=== PATIENT | male | born 1960 | race Caucasian/White ===

== ENCOUNTER 2017-02-26 10:17 | Inpatient (IN) | payer OTHER ==
[~2017-02-26] VITALS: Ht 175.3 cm; Wt 70.5 kg
[2017-02-26] VITALS (23 sets, daily range): BP systolic 97–141; BP diastolic 55–87; PULSE 56–85; RESP 13–39; Ht 175.3 cm; Wt 70.5 kg
[~2017-02-26 10:17] MED LIST: HETASTARCH 6% NACL 500 ML BAG ONE
[2017-02-26] MEDS ORDERED: GELATIN SIZE 100 SPONGE ONE (14:33)
[2017-02-26] MEDS ORDERED: THROMBIN 5000 UNIT VIAL ONE ×2 (14:33→16:42)
[2017-02-26] MEDS ORDERED: SURGIFOAM POWDER 1 GM KIT ONE (14:33)
[2017-02-26] MEDS ORDERED: CA CHLORIDE 10% 10 ML SYRINGE ONE (14:33)
[2017-02-26] MEDS ORDERED: BUPIVACAINE 0.5%/EPI (SDV) 30 ML INJ ONE (14:33)
[2017-02-26] MEDS ORDERED: POLYMYXIN/BACITRACIN 1L IRRIG ONE (14:33)
[2017-02-26] MEDS ORDERED: CEFAZOLIN 1 GM INJ ONE ×2 (14:33→15:38)
--- NOTE | 2017-02-26 15:15 | HPN ---
Date/Time of Note Date/Time of Note DATE: 02/26/17 TIME: 15:15 Interval H&P Admission Note Pt. seen H&P reviewed: No system changes MELI MURILLO MD Feb 26, 2017 15:15
[2017-02-26] MEDS ORDERED: DIPHENHYDRAMINE 50 MG INJ IV PRN ×2 (15:30→17:00)
[2017-02-26] MEDS ORDERED: NALOXONE (0.4 MG/ML) INJ IV PRN (15:30)
[2017-02-26] MEDS ORDERED: DIPHENHYDRAMINE 25 MG CAP PO PRN (15:30)
[2017-02-26] MEDS ORDERED: CEPASTAT LOZENGE MT PRN (15:30)
[2017-02-26] MEDS ORDERED: BISACODYL 10 MG SUPP PR PRN (15:30)
[2017-02-26] MEDS ORDERED: ACETAMINOPHEN 325 MG TAB PO PRN (15:30)
[2017-02-26] MEDS ORDERED: CYCLOBENZAPRINE 10 MG TAB PO PRN (15:30)
[2017-02-26] MEDS ORDERED: AL HYDROX/MG HYDROX/SIMETH 30 ML CUP PO PRN (15:30)
[2017-02-26] MEDS ORDERED: HYDROmorphONE 0.2 MG/ML PCA IV SCH (15:30)
[2017-02-26] MEDS ORDERED: ZOLPIDEM 5 MG TAB PO PRN (15:30)
[2017-02-26] MEDS ORDERED: ONDANSETRON 4 MG INJ IV PRN ×2 (15:30→17:00)
[2017-02-26] MEDS ORDERED: HYDROmorphONE 0.5 MG/0.5 ML SYG IV PRN (15:30)
[2017-02-26] MEDS ORDERED: MIDAZOLAM 1 MG/ML 2 ML INJ ONE (15:38)
[2017-02-26] MEDS ORDERED: PROPOFOL 100 ML ONE ×2 (15:38→18:28)
[2017-02-26] MEDS ORDERED: ROCURONIUM 50 MG INJ ONE ×3 (15:38→17:16)
[2017-02-26] MEDS ORDERED: HEPARIN 1000 UNITS/ML 10 ML INJ ONE (15:44)
[2017-02-26] MEDS: CEFAZOLIN 1 GM/50 ML (PMX) 50 ML IVPB SCH ×2 (16:00→23:42)
--- NOTE | 2017-02-26 16:38 | RADRPT ---
PROCEDURE: XR lumbar spine CLINICAL INDICATION: Lumbar decompression L3-S1 TECHNIQUE: Cross-table lateral lumbar spine radiograph obtained COMPARISON: None available FINDINGS: Jackson present posteriorly at the L3, S1 levels. Preservation of the lumbar lordosis. Anterior oste ophytes seen at L2-3 and L3-4. Mild to moderate disc space narrowing at L2-3 and L5-S1, mild disc sp sindhu narrowing at L4-5. IMPRESSION: Posterior needle localization at L3, and S1. Lumbar spondylosis/degenerative enthesopathy as described above. RPTAT: VV .Gustavo Pandya MD, MD Date Time Electronically viewed and signed by .Gustavo Pandya MD, on 02/26/2017 16:38 .O/
--- NOTE | 2017-02-26 16:44 | RADRPT ---
PROCEDURE: Lumbar spine x-ray CLINICAL INDICATION: Lumbar spine surgery TECHNIQUE: Single intraoperative lateral x-ray view of the lumbar spine is available for review COMPARISON: None available FINDINGS: Surgical changes of the lumbar spine are identified. Intraoperative imaging was performed for local ization during the procedure in progress. Posterior probes are seen at the L4, L5, and S1 levels. Im ages obtained intraoperatively for localization during the procedure. Discogenic disease and disc sp sindhu narrowing throughout most of the mid and lower lumbar spine is seen. Posterior element facet art hropathy is seen as well. The surrounding soft tissues unremarkable. The bowel gas pattern is unrema rkable as well. IMPRESSION: 1. Intraoperative x-ray for localization during lumbar spinal surgical procedure. RPTAT: HMJB .Shade Corona MD, Date Time Electronically viewed and signed by .Shade Corona MD, on 02/26/2017 16:44 .B/
[2017-02-26] MEDS ORDERED: ACETAMINOPHEN 1000MG/100ML IV 100 ML ONE (16:52)
[2017-02-26] MEDS ORDERED: ONDANSETRON 4 MG INJ ONE (16:53)
[2017-02-26] MEDS ORDERED: DEXAMETHASONE 4 MG/ML 1 ML INJ ONE (16:53)
[2017-02-26] MEDS ORDERED: METOCLOPRAMIDE 10 MG INJ ONE (16:53)
[2017-02-26] MEDS ORDERED: METOCLOPRAMIDE 10 MG INJ IV PRN (17:00)
[2017-02-26] MEDS ORDERED: HYDROmorphONE (0.2 MG/ML) 10ML SYG IV PRN ×3 (17:00)
[2017-02-26] MEDS ORDERED: MEPERIDINE 25 MG INJ IV PRN (17:00)
[2017-02-26] MEDS ORDERED: hydrALAzine 20 MG INJ IV PRN (17:00)
[2017-02-26] MEDS ORDERED: LABETALOL HCL 20MG INJ IV PRN (17:00)
[2017-02-26] MEDS ORDERED: FENTAnyl 50 MCG/ML VIAL IV PRN ×3 (17:00)
[2017-02-26] MEDS ORDERED: morphine (1 MG/ML) 10ML SYRINGE IV PRN ×3 (17:00)
[2017-02-26] MEDS ORDERED: EPHEDrine SULFATE 50 MG/5 ML SYG IV PRN (17:00)
[2017-02-26] MEDS ORDERED: FENTAnyl 50 MCG/ML VIAL ONE (17:41)
[2017-02-26] MEDS ORDERED: BUPIVACAINE 0.25% (MPF) 30 ML INJ ONE (17:41)
[2017-02-26] MEDS ORDERED: HYDROCODONE/APAP (10/325) TAB PO PRN (18:00)
[2017-02-26] MEDS ORDERED: SUGAMMADEX SODIUM 200 MG/2 ML VIAL IV ONE (18:29)
--- NOTE | 2017-02-26 18:45 | SIPON ---
Date/Time of Note Date/Time of Note DATE: 02/26/17 TIME: 18:42 Operative Report Preoperative Diagnosis Lumbar stenosis Postoperative Diagnosis Lumbar stenosis Operation/Procedure Performed Lumbar decompression Surgeon see signature line assistant chief train dispatcher Aparna King Anesthesia: general Estimated blood loss: other Transfusion Required none Specimen Disc and spinous process Grafts/Implants none Complications none MELI MURILLO MD Feb 26, 2017 18:45
[2017-02-26] MEDS: D5W-0.45 NACL + KCL 20 MEQ 1,000 ML IV SCH (20:30)
--- NOTE | 2017-02-26 20:31 | OPR ---
DATE OF OPERATION: 02/26/2017 PREOPERATIVE DIAGNOSES: L3 lumbar stenosis with radiculopathy. POSTOPERATIVE DIAGNOSIS: L3 lumbar stenosis with radiculopathy. OPERATION PERFORMED: 1. L3-4, L4-5, and L5-S1 central decompression with decompression of L3, L4, L5 and S1 nerve roots. 2. Right L4-L5 lumbar microdiskectomy. 3. Lateral localizing film x2. 4. Intraoperative neuromonitoring (2.32 hours 15 minutes). 5. Use of operative microscope. PRIMARY SURGEON: Adlo Hernandez MD ENTREPRENEURIAL FINANCE PROFESSOR: Aparna King PA-C. NEED FOR CAD OPERATOR: During this spinal surgical procedure, my assistant hvac mechanic was used to retract and protect the spinal nerves and dural sac. My assistant hvac mechanic also employed the suction catheters to evacuate blood from the surgical field to improve visualization of the neural structures. The assistant hvac mechanic was medically necessary to facilitate the completion of the surgery in a safe and expeditious manner. [facility] regulations, as well as hospital bylaws, preclude the use of non-licensed health care personnel, such as operating room technicians, to perform these functions. FINDINGS: Neuromonitoring at the start of the case revealed right L3 amplitude down 30%, bilateral L4 and L5 amplitude down 40%, left S1 amplitude down 50%. The patient had stenosis at L3-4, L4-5, and L5-S1. Patient had facet diastasis at L4-L5 with a right-sided herniation. ESTIMATED BLOOD LOSS: 300 mL with blood return via Cell Saver. DRAINS: One. SPECIMENS: L4-5 disk as well spinous processes of L3, L4, L5. COMPLICATIONS OF PROCEDURES: None. ANESTHESIOLOGIST: MD Anamika TYPE OF ANESTHESIA: General. INDICATIONS FOR PROCEDURE: This is a 56-year-old gentleman with lumbosacral radiculopathy in the setting of stenosis. He has failed nonoperative measures, therefore, I recommended proceeding with the above-mentioned surgery. Preoperatively, we discussed the risks, benefits, and alternatives. He understood and wished to proceed. DESCRIPTION OF PROCEDURE IN DETAIL: The patient was identified in the preoperative holding area, given Ancef antibiotic, taken to the operating room, where he was successfully placed under general anesthesia. Neuromonitoring leads were placed, sequential compressive devices were applied. Beckett catheter was introduced. Neuromonitoring was utilized during the procedure for 2 hours and 15 minutes to include SSEP, MEP, and EMG. This was performed by Group 47. Start time was 4:20 p.m., closure time was 6:35 p.m. The patient was placed on operative chair and into a prone position over a Umesh frame. All bony prominences were well padded. The back was then prepped and draped in usual sterile fashion. Spinal needles were placed and lateral localizing films obtained to confirm the correct levels. Once this was confirmed, I injected the skin and subcutaneous tissue with 0.5% Marcaine and epinephrine. Incision was then made from L3 to the sacrum. Incision was taken down to the dorsal fascia, which was incised with Bovie cautery. I then subperiosteally dissected the L3, L4, L5, and S1 lamina bilaterally. I then placed Kochers around the spinous processes and took a repeat lateral film to confirm the correct level. Next, I performed a central decompressive laminectomy at L3-4, L4-5 and L5-S1, leaving the superior aspect of L3 intact. I removed the ligamentum flavum and decompressed the canal centrally. I decompressed the lateral recess. I decompressed the L3, L4, L5 and S1 nerve roots bilaterally. At this point, all nerve signals returned to normal. However, the patient had extruded herniation seen on the MRI and therefore microscope was brought in and I performed a right- sided microdiskectomy. My assistant hvac mechanic retracted neural elements medially. Annulotomy was performed followed by a diskectomy with removal of the extraforaminal disk herniations as well. This diskectomy was done in order to alleviate the stenosis and beyond what was required in order to perform a standard decompression. Once this was done, I irrigated the wound. Hemostasis was achieved with Gelfoam, thrombin, bipolar cautery, and Surgifoam. I put bone wax on the bony edges and irrigated the wound one more time. A Valsalva maneuver was performed and there was no leak of CSF. Epidural catheter was passed through which I injected 100 mcg of fentanyl with 2 mL of Marcaine 0.25% preservative-free, and the catheter was pulled. I injected PTT and thrombin over the dura for hemostatic purposes as well as PRP into the disk space. I placed a deep subfascial drain and closed the deep fascia with #1 Stratafix suture. I then closed subcutaneous tissue with 2-0 Vicryl stitch. Microscope was taken off the field. A 4-0 Monocryl closure was then performed. Dermabond and sterile dressings were then applied. The patient was then awakened from anesthesia and taken to recovery in stable condition. Lap, sponge, and instrument counts were correct x2. There were no apparent complications during the procedure. The patient will be admitted to the orthopedic bay for routine postoperative care to include pain control, neurovascular checks, antibiotics, and physical therapy. Dictated By: ALDO HERNANDEZ MD BB/CORAZON Conf#: [id number] DID#: [id number] CC: MARY VASQUEZ MD;*EndCC* MTDD
[2017-02-26] MEDS: DOCUSATE SODIUM 100 MG CAP PO SCH (21:00)
[2017-02-27] MEDS: D5W-0.45 NACL + KCL 20 MEQ 1,000 ML IV SCH ×3 (01:16→18:06)
[2017-02-27 04:00] VITALS: BP 110/72; RESP 18
[2017-02-27 05:41] LABS: ABNORMAL IP MESSAGE 1; BASOPHILS % 0.1 % (0.0-2.0); HEMOGLOBIN 13.8 g/dl (14.0-18.0); LYMPHOCYTES # 0.5 10^3/ul (0.8-2.9); MEAN CORPUSCULAR HEMOGLOBIN 32.5 pg (29.0-33.0); MEAN CORPUSCULAR HGB CONC 34.5 g/dl (32.0-37.0); MEAN CORPUSCULAR VOLUME 94.1 fl (82.0-101.0); MEAN PLATELET VOLUME 9.7 fl (7.4-10.4); MONOCYTE # 0.4 10^3/ul (0.3-0.9); MONOCYTES % 4.9 % (0.0-11.0); NEUTROPHIL # 7.5 10^3/ul (1.6-7.5); NEUTROPHILS % 88.6 % (39.0-77.0); PLATELET COUNT 194 10^3/UL (140-415); POSITIVE DIFF @See below; RED BLOOD COUNT 4.25 10^6/ul (4.70-6.10); WHITE BLOOD COUNT 8.4 10^3/ul (4.8-10.8)
[2017-02-27] MEDS ORDERED: PANTOPRAZOLE 40 MG INJ IV SCH (06:00)
[2017-02-27 06:13] LABS: CALCIUM 8.2 mg/dl (8.4-10.2); CREATININE 0.83 mg/dl (0.61-1.24); MAGNESIUM 1.8 mg/dl (1.7-2.5); POTASSIUM 4.3 mmol/L (3.5-5.1)
[2017-02-27] MEDS: CEFAZOLIN 1 GM/50 ML (PMX) 50 ML IVPB SCH (06:39)
[2017-02-27 07:21] VITALS: BP 104/66; RESP 19
[2017-02-27] MEDS: DOCUSATE SODIUM 100 MG CAP PO SCH ×2 (08:15→20:46)
--- NOTE | 2017-02-27 09:22 | CONS ---
DATE OF ADMISSION: 02/26/2017 DATE OF CONSULTATION: POSTOPERATIVE INTERNAL MEDICINE CONSULTATION The patient had surgery with Dr. Aldo Hernandez late 02/26/2017. REASON FOR CONSULTATION: Consultation requested by Dr. Aldo Hernandez for medical evaluation and f ollow up postoperatively of a 56-year-old gentleman who underwent lumbar spine surgery. Thank you, Dr. Hernandez, for allowing us to participate in care of this patient. HISTORY OF PRESENT ILLNESS: Cale Noyola, a 56-year-old generally healthy male with chronic issues w ith his back. Despite all his back issues has been an avid runner for many, many a year, was admitt ed for correction of some of the symptoms of spinal stenosis L3 through S1 and predominantly had a m ultilevel laminectomy done with some disk cleaning as well with microdiskectomy at L4, L5, etc. In terms of his past medical and general health history and past surgical history, he has had prior surgeries on the knees, elbows, etc. all related to his very active life. From a medical standpoint , had a recent hospitalization for extreme dehydration for which he had run and was not feeling well at the time, but other than that, has been generally healthy. MEDICATIONS: Takes no chronic medications. ALLERGIES: 1. GADOLINIUM. 2. CODEINE. SOCIAL HISTORY: The patient is , has 2 children and is employed. FAMILY HISTORY: Basically positive for cancer. No other major significant illnesses. REVIEW OF SYSTEMS: Other than his joints and his back and recently noted to have weakness in his le ft thigh secondary to radiculopathy, which eventually led to the surgery. PHYSICAL EXAMINATION: VITAL SIGNS: Blood pressure 104/66, pulse 71 and regular, respirations 19, temperature 98, O2 satur ation 97%. HEENT: No obvious abnormalities noted. NECK: Supple. LUNGS: Clear. HEART: Reveals a regular rhythm. ABDOMEN: Unremarkable. EXTREMITIES: Grossly appear normal. IMPRESSION: 1. Status post lumbar spine laminectomy and microdiskectomy. 2. Stable health. DISCUSSION: Current laboratory reveals a normal CBC, normal chemistries. As mentioned above, his v ital signs have been good and overall he feels well. In view of the fact patient got up to the floo r quite late last night, he has not gotten out of bed yet; however, will be starting to be active to day. Thank you again, Dr. Hernandez, for allowing me to participate in the care of this patient. I will be happy to follow him with you during his stay at [facility]. Dictated By: MARY VASQUEZ MD SS/NTS Conf#: [id number] DID#: [id number] CC: ALDO HERNANDEZ MD;*End*
--- NOTE | 2017-02-27 10:56 | PN ---
Date/Time of Note Date/Time of Note DATE: 02/27/17 TIME: 10:55 Assessment/Plan Lines/Catheters IV Catheter Type (from Nrsg): Peripheral IV Beckett in Place (from Nrsg): Yes Assessment/Plan Assessment/Plan s/p lumbar decompression continue PT, ambulate routine care pain control Subjective 24 Hr Interval Summary c/o LBP Exam/Review of Systems Vital Signs Vitals Vital Signs Date Time Temp Pulse Resp B/P Pulse Ox O2 Delivery O2 Flow Rate FiO2 02/27/17 07:21 98.0 71 19 104/66 97 02/26/17 23:44 Nasal Cannula 2.0 Intake and Output 02/26/17 02/26/17 02/27/17 14:59 22:59 06:59 Intake Total 1525 ml 1160 ml Output Total 520 ml 1620 ml Balance 1005 ml -460 ml Exam Free Text/Dictation NVID drain intact, output 190cc Results Result Diagram: 02/27/17 0458 02/27/17 0458 RANGEL MARCUS PA-C Feb 27, 2017 10:56
[2017-02-27 15:43] VITALS: BP 121/71; RESP 19
[2017-02-27 19:55] VITALS: BP 124/74; RESP 20
[2017-02-28 02:44] VITALS: BP 128/72; RESP 20
[2017-02-28 05:16] LABS: BASOPHILS % 0.5 % (0.0-2.0); EOSINOPHILS % 0.4 % (0.0-7.0); HEMATOCRIT 39.5 % (42.0-52.0); HEMOGLOBIN 13.5 g/dl (14.0-18.0); LYMPHOCYTES # 1.8 10^3/ul (0.8-2.9); MEAN CORPUSCULAR HEMOGLOBIN 32.5 pg (29.0-33.0); MEAN CORPUSCULAR HGB CONC 34.2 g/dl (32.0-37.0); MEAN PLATELET VOLUME 9.5 fl (7.4-10.4); MONOCYTE # 0.8 10^3/ul (0.3-0.9); MONOCYTES % 9.8 % (0.0-11.0); NEUTROPHIL # 5.7 10^3/ul (1.6-7.5); NEUTROPHILS % 68.1 % (39.0-77.0); PLATELET COUNT 170 10^3/UL (140-415); RED BLOOD COUNT 4.16 10^6/ul (4.70-6.10); RED CELL DISTRIBUTION WIDTH 12.4 % (11.5-14.5); WHITE BLOOD COUNT 8.4 10^3/ul (4.8-10.8)
[2017-02-28 05:44] LABS: CALCIUM 8.5 mg/dl (8.4-10.2); CREATININE 0.91 mg/dl (0.61-1.24); MAGNESIUM 1.9 mg/dl (1.7-2.5); POTASSIUM 4.1 mmol/L (3.5-5.1)
[2017-02-28] MEDS: PANTOPRAZOLE (EC) 40 MG TAB PO SCH (06:21)
[2017-02-28] MEDS: D5W-0.45 NACL + KCL 20 MEQ 1,000 ML IV SCH ×2 (06:23→16:54)
--- NOTE | 2017-02-28 07:49 | PN ---
Date/Time of Note Date/Time of Note DATE: 02/28/17 TIME: 07:48 Assessment/Plan Lines/Catheters IV Catheter Type (from Nrsg): Peripheral IV Beckett in Place (from Nrsg): Yes Assessment/Plan Assessment/Plan Postoperative day 2 status post lumbar decompression. Patient is doing fairly well. We will discontinue ORGAN TUNER [employer]RON[employer] and Beckett today. Anticipate discharge tomorrow after Hemovac is removed Subjective 24 Hr Interval Summary Complains of sore back after sitting for prolonged period of time yesterday on his laptop Exam/Review of Systems Vital Signs Vitals Vital Signs Date Time Temp Pulse Resp B/P Pulse Ox O2 Delivery O2 Flow Rate FiO2 02/28/17 02:44 98.6 72 20 128/72 96 02/26/17 23:44 Nasal Cannula 2.0 Intake and Output 02/27/17 02/27/17 02/28/17 15:00 23:00 07:00 Intake Total 50 ml 2200 ml 1800 ml Output Total 50 ml 1420 ml 2565 ml Balance 0 ml 780 ml -765 ml Exam Free Text/Dictation Neurovascularly intact Results Result Diagram: 02/28/17 0452 02/28/17 0452 MELI MURILLO MD Feb 28, 2017 07:49
[2017-02-28 08:03] VITALS: BP 109/70; RESP 20
--- NOTE | 2017-02-28 08:06 | CONS ---
Date/Time of Note Date/Time of Note DATE: 02/28/17 TIME: 07:58 Consult Date/Type/Reason Admit Date/Time Feb 26, 2017 at 12:56 Initial Consult Date 02/27/2017 Type of Consultation: internal medicine Reason for Consultation medical evaluation and f/u Ordering Provider: MELI MURILLO MD Subjective complaining of back pain may have overdone activity yesterday can't find a comfortable position,also has some abdominal bloating Objective Vital Signs Date Time Temp Pulse Resp B/P Pulse Ox O2 Delivery O2 Flow Rate FiO2 02/28/17 05:00 18 02/28/17 02:44 98.6 72 128/72 96 02/26/17 23:44 Nasal Cannula 2.0 Intake and Output 02/27/17 02/27/17 02/28/17 15:00 23:00 07:00 Intake Total 50 ml 2200 ml 1800 ml Output Total 50 ml 1420 ml 2565 ml Balance 0 ml 780 ml -765 ml Exam vss heent negative lungs clear heart regular rhythm abdomen soft slightly distended bowel sounds present Results/Medications Result Diagram: 02/28/17 0452 02/28/17 0452 Results 24 hrs Laboratory Tests Test 02/28/17 04:52 White Blood Count 8.4 Red Blood Count 4.16 L Hemoglobin 13.5 L Hematocrit 39.5 L Mean Corpuscular Volume 95.0 Mean Corpuscular Hemoglobin 32.5 Mean Corpuscular Hemoglobin Concent 34.2 Red Cell Distribution Width 12.4 Platelet Count 170 Mean Platelet Volume 9.5 Neutrophils % 68.1 Lymphocytes % 21.0 Monocytes % 9.8 Eosinophils % 0.4 Basophils % 0.5 Nucleated Red Blood Cells % 0.0 Neutrophils # 5.7 Lymphocytes # 1.8 Monocytes # 0.8 Eosinophils # 0.0 Basophils # 0.0 Nucleated Red Blood Cells # 0.0 Sodium Level 139 Potassium Level 4.1 Chloride Level 104 Carbon Dioxide Level 31 Anion Gap 8 Blood Urea Nitrogen 11 Creatinine 0.91 Glucose Level 101 # Calcium Level 8.5 Magnesium Level 1.9 Medications Current Medications Potassium Chloride/Dextrose/ Sod Cl (D5-1/2ns + KCl 20 Meq) 1,000 ml @ 100 mls/ hr Q10H IV Last administered on 02/28/17t 06:23; Admin Dose 100 MLS/HR; Start 02/26/17 at 15:16 Acetaminophen/ Hydrocodone Bitart ([place] (325)) 1 tab Q4H PRN PO PAIN LEVEL 1-5; Start 02/26/17 at 18:00 Acetaminophen/ Hydrocodone Bitart ([place] (325)) 2 tab Q4H PRN PO PAIN LEVEL 6-10; Start 02/26/17 at 18:00 Hydromorphone HCl (Dilaudid) 0.2 mg Q1H PRN IV BREAKTHROUGH PAIN; Start at 15:30 Zolpidem Tartrate (Ambien) 5 mg HS PRN PO INSOMNIA; Start 02/26/17 at 15:30 Ondansetron HCl (Zofran Inj) 4 mg Q6H PRN IV NAUSEA AND/OR VOMITING; Start at 15:30 Bisacodyl (Dulcolax Supp) 10 mg DAILY PRN [place] CONSTIPATION; Start 02/26/17 at 15:30 Docusate Sodium (Colace) 100 mg BID PO Last administered on 02/27/17t 20:46; Admin Dose 100 MG; Start 02/26/17 at 21:00 Al Hydrox/Mg Hydrox/Simethicone (Mag-Al Plus) 15 ml Q6H PRN PO CONSTIPATION/ DYSPEPSIA; Start 02/26/17 at 15:30 Acetaminophen (Tylenol Tab) 650 mg Q4H PRN PO WOO OR TEMP GREATER THAN 101.3F; Start 02/26/17 at 15:30 Cyclobenzaprine HCl (Flexeril) 10 mg TID PRN PO MUSCLE SPASMS; Start 02/26/17 at 15:30 Phenol (Cepastat Lozenge) 1 lozenge PRN PRN [place] SORE THROAT; Start 02/26/17 at 15:30 Diphenhydramine HCl (Benadryl) 25 mg Q6H PRN PO ITCHING; Start 02/26/17 at 15: 30 Diphenhydramine HCl (Benadryl) 25 mg Q6H PRN IV ITCHING; Start 02/26/17 at 15: 30 Naloxone HCl (Narcan) 0.2 mg Q2M PRN IV RR 8 BREATHS/MIN OR LESS; Start at 15:30 Miscellaneous Information 1. Hold MANAGER ADMINISTRATIVE SERVICES at 1,000... MANAGER ADMINISTRATIVE SERVICES IV ; Start 02/26/17 at 15 :30 Pantoprazole (Protonix Tab) 40 mg DAILY@06 PO Last administered on 02/28/17t 06:21; Admin Dose 40 MG; Start 02/28/17 at 06:00 Assessment/Plan Chief Complaint/Hosp Course back pain and could not find a comfortable position last night Problems: Additional Assessment/Plan will try to get some sleep today using command center officer today .maybe resume pt in pm MARY VASQUEZ MD Feb 28, 2017 08:06
[2017-02-28] MEDS: DOCUSATE SODIUM 100 MG CAP PO SCH ×2 (09:06→21:00)
[2017-02-28] MEDS: HYDROCODONE/APAP (10/325) TAB PO PRN (10:59)
[2017-02-28 13:39] VITALS: BP 108/64; RESP 20
[2017-02-28] MEDS ORDERED: KETOROLAC 30 MG INJ IV STA (17:00)
[2017-02-28 20:09] VITALS: BP 104/55; RESP 20
[2017-03-01] MEDS: D5W-0.45 NACL + KCL 20 MEQ 1,000 ML IV SCH ×2 (03:16→13:16)
[2017-03-01 05:14] LABS: BASOPHILS % 0.4 % (0.0-2.0); EOSINOPHILS # 0.1 10^3/ul (0.0-0.5); EOSINOPHILS % 0.8 % (0.0-7.0); HEMATOCRIT 40.5 % (42.0-52.0); HEMOGLOBIN 13.9 g/dl (14.0-18.0); LYMPHOCYTES # 1.6 10^3/ul (0.8-2.9); LYMPHOCYTES % 21.7 % (15.0-51.0); MEAN CORPUSCULAR HEMOGLOBIN 32.6 pg (29.0-33.0); MEAN CORPUSCULAR HGB CONC 34.3 g/dl (32.0-37.0); MEAN CORPUSCULAR VOLUME 95.1 fl (82.0-101.0); MEAN PLATELET VOLUME 9.6 fl (7.4-10.4); MONOCYTE # 0.7 10^3/ul (0.3-0.9); MONOCYTES % 10.2 % (0.0-11.0); NEUTROPHIL # 4.7 10^3/ul (1.6-7.5); NEUTROPHILS % 66.5 % (39.0-77.0); PLATELET COUNT 169 10^3/UL (140-415); RED BLOOD COUNT 4.26 10^6/ul (4.70-6.10); WHITE BLOOD COUNT 7.1 10^3/ul (4.8-10.8)
[2017-03-01 05:39] LABS: CALCIUM 8.6 mg/dl (8.4-10.2); CREATININE 0.91 mg/dl (0.61-1.24); POTASSIUM 3.9 mmol/L (3.5-5.1)
[2017-03-01 07:56] VITALS: BP 109/69; RESP 18
[2017-03-01] MEDS: PANTOPRAZOLE (EC) 40 MG TAB PO SCH (07:56)
[2017-03-01] MEDS: HYDROCODONE/APAP (10/325) TAB PO PRN (07:56)
--- NOTE | 2017-03-01 08:03 | CONS ---
Date/Time of Note Date/Time of Note DATE: 03/01/17 TIME: 07:57 Consult Date/Type/Reason Admit Date/Time Feb 26, 2017 at 12:56 Initial Consult Date 02/27/2017 Type of Consultation: internal medicine Reason for Consultation medical f/u Ordering Provider: MELI GUERRERO MD Subjective a little better today still has alot of back pain and feels uncomfortable Objective Vital Signs Date Time Temp Pulse Resp B/P Pulse Ox O2 Delivery O2 Flow Rate FiO2 02/28/17 20:09 98.0 60 20 104/55 95 02/26/17 23:44 Nasal Cannula 2.0 Intake and Output 02/28/17 02/28/17 03/01/17 14:59 22:59 06:59 Intake Total 100 ml 800 ml Output Total 1300 ml Balance 100 ml -500 ml Exam vss lungs clear heart regular rhythm abdomen soft slightly distended catheter still in Results/Medications Result Diagram: 03/01/17 0433 03/01/17 0433 Results 24 hrs Laboratory Tests Test 03/01/17 04:33 White Blood Count 7.1 Red Blood Count 4.26 L Hemoglobin 13.9 L Hematocrit 40.5 L Mean Corpuscular Volume 95.1 Mean Corpuscular Hemoglobin 32.6 Mean Corpuscular Hemoglobin Concent 34.3 Red Cell Distribution Width 12.0 Platelet Count 169 Mean Platelet Volume 9.6 Neutrophils % 66.5 Lymphocytes % 21.7 Monocytes % 10.2 Eosinophils % 0.8 Basophils % 0.4 Nucleated Red Blood Cells % 0.0 Neutrophils # 4.7 Lymphocytes # 1.6 Monocytes # 0.7 Eosinophils # 0.1 Basophils # 0.0 Nucleated Red Blood Cells # 0.0 Sodium Level 139 Potassium Level 3.9 Chloride Level 103 Carbon Dioxide Level 32 H Anion Gap 8 Blood Urea Nitrogen 16 Creatinine 0.91 Glucose Level 94 Calcium Level 8.6 Magnesium Level 2.0 Medications Current Medications Potassium Chloride/Dextrose/ Sod Cl (D5-1/2ns + KCl 20 Meq) 1,000 ml @ 100 mls/ hr Q10H IV Last administered on 02/28/17t 06:23; Admin Dose 100 MLS/HR; Start 02/26/17 at 15:16 Acetaminophen/ Hydrocodone Bitart ([place] (10/325)) 1 tab Q4H PRN PO PAIN LEVEL 1-5 Last administered on 03/01/17 07:56; Admin Dose 1 TAB; Start 02/26/17 at 18:00 Acetaminophen/ Hydrocodone Bitart ([place] (10/325)) 2 tab Q4H PRN PO PAIN LEVEL 6-10; Start 02/26/17 at 18:00 Hydromorphone HCl (Dilaudid) 0.2 mg Q1H PRN IV BREAKTHROUGH PAIN; Start at 15:30 Zolpidem Tartrate (Ambien) 5 mg HS PRN PO INSOMNIA; Start 02/26/17 at 15:30 Ondansetron HCl (Zofran Inj) 4 mg Q6H PRN IV NAUSEA AND/OR VOMITING Last administered on 02/28/17 16:51; Admin Dose 4 MG; Start 02/26/17 at 15:30 Bisacodyl (Dulcolax Supp) 10 mg DAILY PRN [place] CONSTIPATION; Start 02/26/17 at 15:30 Docusate Sodium (Colace) 100 mg BID PO Last administered on 02/28/17 09:06; Admin Dose 100 MG; Start 02/26/17 at 21:00 Al Hydrox/Mg Hydrox/Simethicone (Mag-Al Plus) 15 ml Q6H PRN PO CONSTIPATION/ DYSPEPSIA; Start 02/26/17 at 15:30 Acetaminophen (Tylenol Tab) 650 mg Q4H PRN PO WOO OR TEMP GREATER THAN 101.3F; Start 02/26/17 at 15:30 Cyclobenzaprine HCl (Flexeril) 10 mg TID PRN PO MUSCLE SPASMS Last administered on 02/28/17 09:06; Admin Dose 10 MG; Start 02/26/17 at 15:30 Phenol (Cepastat Lozenge) 1 lozenge PRN PRN MT SORE THROAT; Start 02/26/17 at 15:30 Diphenhydramine HCl (Benadryl) 25 mg Q6H PRN PO ITCHING; Start 02/26/17 at 15: 30 Diphenhydramine HCl (Benadryl) 25 mg Q6H PRN IV ITCHING; Start 02/26/17 at 15: 30 Naloxone HCl (Narcan) 0.2 mg Q2M PRN IV RR 8 BREATHS/MIN OR LESS; Start 11/28/ 17 at 15:30 Miscellaneous Information 1. Hold FOREST FIRE EQUIPMENT OPERATOR at 1,000... FOREST FIRE EQUIPMENT OPERATOR IV ; Start 02/26/17 at 15 :30 Pantoprazole (Protonix Tab) 40 mg DAILY@06 PO Last administered on 03/01/17t 07 :56; Admin Dose 40 MG; Start 02/28/17 at 06:00 Assessment/Plan Chief Complaint/Hosp Course back pain and could not find a comfortable position last night Problems: Additional Assessment/Plan management per dr guerrero. increase activity etc, medically stable at this point however still complaining of pain and constipation MARY VASQUEZ MD Mar 01, 2017 08:03
--- NOTE | 2017-03-01 08:06 | PN ---
Date/Time of Note Date/Time of Note DATE: 03/01/17 TIME: 08:05 Assessment/Plan Lines/Catheters IV Catheter Type (from Nrsg): Peripheral IV Yeung in Place (from Nrsg): Yes Assessment/Plan Assessment/Plan s/p lumbar decompression D/C yeung today PT today please call me if patient is cleared for D/C by PT and wishes to go home today o/w anticipate D/C tommorrow Subjective 24 Hr Interval Summary patient c/o post-operative LBP Exam/Review of Systems Vital Signs Vitals Vital Signs Date Time Temp Pulse Resp B/P Pulse Ox O2 Delivery O2 Flow Rate FiO2 03/01/17 07:56 98.0 69 18 109/69 94 02/26/17 23:44 Nasal Cannula 2.0 Intake and Output 02/28/17 02/28/17 03/01/17 15:00 23:00 07:00 Intake Total 100 ml 800 ml Output Total 1300 ml Balance 100 ml -500 ml Exam Free Text/Dictation NVID drain removed, new dressing in place incision C/D/I Results Result Diagram: 03/01/17 0433 03/01/17 0433 RANGEL MARCUS PA-C Mar 01, 2017 08:06
[2017-03-01] MEDS: DOCUSATE SODIUM 100 MG CAP PO SCH (09:39)
[2017-03-01 15:00] VITALS: BP 106/70; RESP 18
== END 2017-03-01 16:40 | disposition home or self-care (01) | DRG 520 ==
LOC: REC 12:56 → MS1 20:00
PROVIDERS: ADMIT Specialist; ATTEND Specialist
PROC: 01NB0ZZ Release Lumbar Nerve, Open Approach (ICD-10-PCS; 2017-02-26)
PROC: 01NR0ZZ Release Sacral Nerve, Open Approach (ICD-10-PCS; 2017-02-26)
PROC: 4A11X4G Monitoring of Peripheral Nervous Electrical Activity, Intraoperative, External Approach (ICD-10-PCS; 2017-02-26)
PROC: 0SB20ZZ Excision of Lumbar Vertebral Disc, Open Approach (ICD-10-PCS; principal; 2017-02-26 15:00)
DX: M48.061 Spinal stenosis, lumbar region without neurogenic claudication (principal); M54.16 Radiculopathy, lumbar region
CPT/HCPCS: 72020; 80048; 83735; 85025; 86850; 86900; 86901; 86920; 86999; 87086; 97116; 97162; 97530; C9113; J0131; J0690; J1100; J1170; J1644; J1885; J2250; J2405; J2765; J3010; J3480